=== PATIENT | male | born 1965 | race Caucasian/White ===

== ENCOUNTER 2016-10-22 19:20 | Emergency (ER) | payer BC ==
[2016-10-22 19:40] VITALS: BP 145/92
[2016-10-22] MEDS ORDERED: EPINEPHrine 1:1000 1 MG/ML SDV SUBCUT ONE ×2 (19:49→21:26)
[2016-10-22] MEDS ORDERED: diphenhydrAMINE 50 MG/ML SDV IVPUSH ONE (19:50)
[2016-10-22] MEDS ORDERED: methylPREDNISolone Sodium Succinate 125 MG/2 ML SDV IVPUSH ONE (19:51)
[2016-10-22] MEDS ORDERED: Sodium Chloride 0.9% 1,000 ML IV SCH (20:00)
[2016-10-22] MEDS ORDERED: diphenhydrAMINE 25 MG Cap PO ONE (20:33)
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
== END 2016-10-22 22:45 | disposition home or self-care (01) ==
LOC: JP.ED 19:20
DX: L50.9 Urticaria, unspecified (principal); T78.40XA Allergy, unspecified, initial encounter; I48.91 Unspecified atrial fibrillation; E78.00 Pure hypercholesterolemia, unspecified; K21.9 Gastro-esophageal reflux disease without esophagitis; Z98.890 Other specified postprocedural states; Z79.82 Long term (current) use of aspirin; Z79.899 Other long term (current) drug therapy; Z91.018 Allergy to other foods
CPT/HCPCS: 36415; 80053; 85025; 96361; 96374; 96375; 99284; A9270; J0171; J1200; J2930; J7040

== ENCOUNTER 2017-01-10 07:07 | Day surgery (SDC) | payer BC ==
[2017-01-10] MEDS ORDERED: Dextrose 5%-Lactated Ringers 1,000 ML IV SCH (08:00)
[2017-01-10] MEDS ORDERED: Propofol 200 MG/20 ML SDV ONE (08:25)
[2017-01-10] MEDS ORDERED: fentaNYL 100 MCG/2 ML SDV ONE (08:25)
[2017-01-10] MEDS ORDERED: Midazolam 1 MG/ML 2 ML SDV ONE (08:25)
[2017-01-10] MEDS ORDERED: Glycopyrrolate 0.2 MG/ML 2 ML SYRINGE IVPUSH ONE (08:30)
[2017-01-10 10:41] VITALS: BP 129/86
--- NOTE | 2017-01-14 16:17 | OR ---
DATE OF PROCEDURE: 01/10/2017 PREOPERATIVE DIAGNOSIS: Laryngopharyngeal dysphagia. POSTOPERATIVE DIAGNOSES: 1. Laryngopharyngeal dysphagia associated with normal hypopharynx, larynx, and esophagus (no hiatal hernia and no esophagogastric junction inflammation). 2. Patchy antral gastritis. OPERATIVE PROCEDURE: Upper GI endoscopy with biopsies of antrum for CLOtest. ANESTHESIA: IV sedation. INDICATIONS FOR PROCEDURE: This is a 51-year-old male with longstanding use of omeprazole for epigastric pain and probably some degree of heartburn and is presenting with some dysphagia referable to the laryngopharyngeal level. The plan is to proceed with upper GI endoscopy with biopsies and/or dilation as indicated. Potential risks including bleeding and perforation were discussed, and the patient wishes to proceed. DETAILS OF PROCEDURE: The patient was taken to the operating room and placed in a left lateral decubitus position. IV sedation was administered, after which the upper GI endoscope was passed orally through the length of the esophagus into stomach with retroflexion view of the fundus, and thereafter through the pyloric channel and into the duodenum to the junction of the third and fourth portions. The hypopharynx, larynx, and upper esophageal sphincter were at this time not associated with any significant inflammation grossly. As one passed into the body of the esophagus, this was likewise normal and the esophagogastric junction was associated with no significant hiatal hernia and the mucosa at that level appeared to be absolutely entirely normal with no edema or signs of inflammation. As one passed through the stomach, the proximal stomach was unremarkable. There was some patchy red spots within the antrum consistent with some gastritis at that level. No were seen. The pyloric channel and duodenum were unremarkable. Biopsies were obtained from the antrum and sent for CLOtest for H. pylori. Minimal bleeding from the biopsy sites was seen and the procedure then concluded with removal of the scope at that point. The plan will be to have the patient continue the present medical management with the patient having laryngopharyngeal upper proximal esophageal dysphagia. We will obtain an x- ray swallow study and speech pathology evaluation. Following this, he will be set up to see Ryan Deleon in [facility] for followup. Dileep Cai MD /[id number]
== END 2017-01-10 10:44 | disposition home or self-care (01) ==
LOC: JP.SDS 07:07
PROVIDERS: ATTEND Surgery
DX: K29.50 Unspecified chronic gastritis without bleeding (principal); J45.909 Unspecified asthma, uncomplicated; K21.9 Gastro-esophageal reflux disease without esophagitis; Z91.018 Allergy to other foods
CPT/HCPCS: 43239; 87081; J2250; J2704; J3010; J7042

== ENCOUNTER 2017-12-06 05:28 | Emergency (ER) | payer BC ==
[2017-12-06] MEDS ORDERED: Albuterol/Ipratropium 3.0-0.5 MG/3 ML Neb Soln NEB ONE (06:04)
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
[2017-12-06 06:15] VITALS: BP 138/97
== END 2017-12-06 06:36 | disposition home or self-care (01) ==
LOC: JP.ED 05:28
DX: J98.01 Acute bronchospasm (principal); J06.9 Acute upper respiratory infection, unspecified; E78.00 Pure hypercholesterolemia, unspecified; Z91.018 Allergy to other foods; Z79.899 Other long term (current) drug therapy
CPT/HCPCS: 36415; 85027; 94640; 99284; J7620

== ENCOUNTER 2023-04-23 13:44 | Emergency (ER) | payer BC ==
[2023-04-23 17:04] VITALS: BP 136/97; PULSE 61
== END 2023-04-23 17:26 | disposition home or self-care (01) ==
LOC: JP.ED 13:44
DX: S40.861A Insect bite (nonvenomous) of right upper arm, initial encounter (principal); E78.00 Pure hypercholesterolemia, unspecified; I48.91 Unspecified atrial fibrillation; K21.9 Gastro-esophageal reflux disease without esophagitis; J45.909 Unspecified asthma, uncomplicated; Z91.018 Allergy to other foods; Z88.6 Allergy status to analgesic agent; Z88.8 Allergy status to other drugs, medicaments and biological substances; W57.XXXA Bitten or stung by nonvenomous insect and other nonvenomous arthropods, initial encounter
CPT/HCPCS: 99282